=== PATIENT | female | born 1970 | race Two or more races ===

== ENCOUNTER 2019-05-01 03:47 | Emergency (ER) | payer SELFPAY ==
[~2019-05-01] VITALS: Ht 157.5 cm; Wt 77.1 kg
[2019-05-01 03:57] VITALS: BP 149/98
== END 2019-05-01 05:05 | disposition left against medical advice (07) ==
LOC: ER 03:47
DX: I10 Essential (primary) hypertension (principal); Z53.21 Procedure and treatment not carried out due to patient leaving prior to being seen by health care provider